=== PATIENT | female | born 1985 | race Hispanic/Latino ===

== ENCOUNTER 2023-08-12 11:01 | Outpatient (CLI) | payer BC | END 2023-08-12 11:02 | disposition home or self-care (01) | LOC: CSHRAD 11:01 | PROVIDERS: ATTEND Internal Medicine Rheumatology | DX: M46.1 Sacroiliitis, not elsewhere classified (principal); M54.50 Low back pain, unspecified; M54.2 Cervicalgia | CPT/HCPCS: 72040; 72202 ==